=== PATIENT | male | born 1965 | race Caucasian/White ===

== ENCOUNTER 2016-12-30 08:39 | Emergency (ER) | payer MEDICARE, OTHER, MEDICAID ==
[~2016-12-30] VITALS: Ht 172.7 cm; Wt 84.1 kg
[~2016-12-30 08:39] MED LIST: /ESOM40CA PO; /PANT40TA PO; ACET50TA PO; AMBIEN PO; COLA50CA3 PO; DEXA4TA PO; KEPP500T4 PO
[2016-12-30] MEDS ORDERED: KEPP1TAB PO (08:56)
[2016-12-30] MEDS ORDERED: [UNRECOGNIZED DRUG - OTHER] PO (08:56)
[2016-12-30] MEDS ORDERED: NS 1,000 ML IV ONE ×2 (09:00→10:15)
[2016-12-30] MEDS ORDERED: ACETAMINOPHEN TAB 650MG DOSE (2X325MG) PO ONE (09:00)
[2016-12-30 09:04] LABS: BASO % 0.5 % (0.0-1.0); EOS # 0.1 K/mm3 (0.0-0.50); EOS % 0.7 % (0.0-3.0); LARGE UNSTAINED CELL # 0.1 K/mm3 (0.0-0.4); LARGE UNSTAINED CELL % 0.7 % (0.0-4.0); LYMPH # 0.9 K/mm3 (1.5-4.5); LYMPH % 8.9 % (24.0-44.0); MEAN CORPUSCULAR HEMOGLOBIN 30.7 pg (27.0-33.0); MEAN CORPUSCULAR HGB CONC 34.9 g/dl (32.0-36.5); MEAN CORPUSCULAR VOLUME 87.9 fl (80.0-96.0); MONO # 0.3 K/mm3 (0.0-0.8); MONO % 2.8 % (0.0-5.0); NEUTROPHILS # 8.3 K/mm3 (1.8-7.7); NEUTROPHILS % 86.3 % (36.0-66.0); PLATELET COUNT, AUTOMATED 234 k/mm3 (150-450); RED CELL DISTRIBUTION WIDTH 12.4 % (11.5-14.5); WHITE BLOOD COUNT 9.6 K/mm3 (4.0-10.0)
[2016-12-30 09:14] LABS: ALBUMIN 3.5 GM/DL (3.2-5.2); ALBUMIN/GLOBULIN RATIO 1.06 (1.00-1.93); ALKALINE PHOSPHATASE 68 U/L (45-117); ALT/SGPT 21 U/L (12-78); ANION GAP 10 MEQ/L (8-16); AST/SGOT 10 U/L (15-37); BILIRUBIN,DIRECT 0.1 MG/DL (0.0-0.2); BILIRUBIN,TOTAL 0.5 MG/DL (0.2-1.0); BLOOD UREA NITROGEN 18 MG/DL (7-18); CALCIUM LEVEL 8.6 MG/DL (8.5-10.1); CARBON DIOXIDE LEVEL 26 MEQ/L (21-32); CHLORIDE LEVEL 109 MEQ/L (98-107); CREATININE FOR GFR 1.06 MG/DL (0.70-1.30); GLOMERULAR FILTRATION RATE > 60.0 (>56); GLUCOSE, FASTING 115 MG/DL (70-105); POTASSIUM SERUM 3.9 MEQ/L (3.5-5.1); SODIUM LEVEL 145 MEQ/L (136-145); TOTAL PROTEIN 6.8 GM/DL (6.4-8.2)
[2016-12-30] MEDS ORDERED: METOCLOPRAMIDE INJ 10MG/2ML VIAL (J2765) IV ONE (10:30)
--- NOTE | 2016-12-30 11:59 | REP ---
CT HEAD WITHOUT CONTRAST: HISTORY: Glioblastoma. COMPARISON: CT 05/27/2013 and MR 07/01/2013. There is an increase in the amount of vasogenic edema present in the right parietal, temporal and frontal lobes. There is mass effect with a partial effacement of the overlying cortical sulci and body of the right lateral and third ventricles with midline shift to the left. This is due to an increase in tumor size. There is no hydrocephalus or extracerebral collection. The sinuses are clear. IMPRESSION: There is an increase in the amount of vasogenic edema in the right cerebral hemisphere with midline shift to the left most likely secondary to an increase in size of the patient's known tumor. Signed by Terry Christianson MD 12/30/2016 12:15 P
[2016-12-30] MEDS ORDERED: DEXA2TA PO (12:21)
[2016-12-30 12:47] VITALS: BP 132/94
--- NOTE | 2016-12-31 08:32 | ECGEPIP ---
Stationary ECG Study [facility] - ED Test Date: 2016-12-30 Pat Name: LIANA VILLARREAL Department: Room: - Gender: M Assistant Professor In Family Studies: olivia : 1965 Requested By: Sanjuanita Singh Order Number: [id number] Reading MD: Trev Omer Measurements Intervals [place] Rate: 77 P: 36 MI: 148 QRS: 11 QRSD: 92 T: -1 QT: 392 QTc: 446 Interpretive Statements SINUS RHYTHM LOW QRS VOLTAGE IN PRECORDIAL LEADS NONSPECIFIC T-WAVE ABNORMALITY SIMILAR TO 05/23/13 Electronically Signed On 12-31-2016 8:32:10 EDT by Trev Omer
== END 2016-12-30 12:53 | disposition home or self-care (01) ==
LOC: M ED 08:39 → EDBD 08:39 → M ED 12:53
DX: R11.2 Nausea with vomiting, unspecified (principal); C71.9 Malignant neoplasm of brain, unspecified; R56.9 Unspecified convulsions; Z79.899 Other long term (current) drug therapy
CPT/HCPCS: 70450; 80048; 80076; 83690; 85025; 93005; 96361; 96374; 99284; J2765

== ENCOUNTER 2017-08-31 15:21 | Emergency (ER) | payer MEDICARE, OTHER, MEDICAID ==
[2017-08-31 16:17] LABS: BASO % 0.3 % (0.0-1.0); EOS % 0.3 % (0.0-3.0); HEMATOCRIT 46.6 % (42.0-52.0); HEMOGLOBIN 15.8 g/dl (13.5-17.5); IMMATURE GRANULOCYTE % 0.3 % (0-3.0); LYMPH # 1.1 10^3/uL (1.5-4.5); LYMPH % 11.6 % (24.0-44.0); MEAN CORPUSCULAR HEMOGLOBIN 29.5 pg (27.0-33.0); MEAN CORPUSCULAR HGB CONC 33.9 g/dl (32.0-36.5); MEAN CORPUSCULAR VOLUME 87.1 fl (80.0-96.0); MONO # 0.7 10^3/uL (0.0-0.8); MONO % 7.3 % (0.0-5.0); NEUTROPHILS # 7.7 10^3/uL (1.8-7.7); NEUTROPHILS % 80.2 % (36.0-66.0); PLATELET COUNT, AUTOMATED 353 10^3/uL (150-450); RED BLOOD COUNT 5.35 10^6/uL (4.30-6.10); RED CELL DISTRIBUTION WIDTH 12.8 % (11.5-14.5); WHITE BLOOD COUNT 9.6 10^3/uL (4.0-10.0)
[2017-08-31 16:33] LABS: INR 1.04; PROTHROMBIN TIME 13.7 SECONDS (12.4-14.5)
[2017-08-31 16:34] LABS: PARTIAL THROMBOPLASTIN TIME 32.7 SECONDS (26.8-37.9)
[2017-08-31 16:48] LABS: ANION GAP 9 MEQ/L (8-16); BLOOD UREA NITROGEN 28 MG/DL (7-18); CALCIUM LEVEL 9.5 MG/DL (8.5-10.1); CARBON DIOXIDE LEVEL 26 MEQ/L (21-32); CHLORIDE LEVEL 104 MEQ/L (98-107); CK-MB VALUE MASS < 1.0 NG/ML (<3.6); CPK CREATINE PHOSPHOKINASE 69 U/L (39-308); CREATININE FOR GFR 1.15 MG/DL (0.70-1.30); GLOMERULAR FILTRATION RATE > 60.0 (>56); GLUCOSE, FASTING 104 MG/DL (70-100); MB/CK RELATIVE INDEX 1.44 (< OR =4); SODIUM LEVEL 139 MEQ/L (136-145); TROPONIN I < 0.02 NG/ML (< 0.10)
[2017-08-31] MEDS: dexameTHASONE 20 MG/5 ML VIAL (J1100) IV (17:24)
== END 2017-08-31 17:51 | disposition short-term general hospital (02) ==
LOC: M ED 15:21
DX: I69.959 Hemiplegia and hemiparesis following unspecified cerebrovascular disease affecting unspecified side (principal); C71.9 Malignant neoplasm of brain, unspecified; R00.0 Tachycardia, unspecified; Z79.899 Other long term (current) drug therapy
CPT/HCPCS: J1100